=== PATIENT | female | born 1960 | race Caucasian/White ===

== ENCOUNTER 2021-04-26 16:34 | Emergency (ER) | payer OTHER ==
[2021-04-26] MEDS ORDERED: Sodium Chloride 0.9% 10 ML Syringe FLUSH PRN (17:12)
[2021-04-26] MEDS ORDERED: Ketorolac 30 MG/ML SDV IVPUSH ONE (17:56)
--- NOTE | 2021-04-26 18:01 | EDM.PDOC ---
ED HPI GENERAL MEDICAL PROBLEM - General Chief Complaint: Genitourinary Problem Stated Complaint: GROIN PRESSURE Time Seen by Provider: 04/26/21 16:53 Source of Information: Reports: Patient History Limitations: Reports: No Limitations - History of Present Illness INITIAL COMMENTS - FREE TEXT/NARRATIVE: 60-year-old female presents to the emergency department with a 2-day history of pressure in the lower groin/suprapubic area. She states that the pain and pressure is so extreme that she feels as though she is prolapsing. She states she does have a history of kidney stone. Developed right flank pain approximately 1 day ago however she states that seems to have resolved since arriving in the emergency department. She also notes that she has had significant urinary frequency however has not had any burning or irritation noted. She dates she has had fever and chills throughout the day today. She also notes nausea and vomiting associated with the right flank pain however that has resolved since the pain has subsided. She denies any cough, shortness of breath, headache or body aches. She states she has not taken any Tylenol or ibuprofen for the discomfort associated. Groin Pain Score (Numeric/FACES): 4 - Related Data Allergies Allergy/AdvReac Type Severity Reaction Status Date / Time meperidine HCl [From Demerol] Allergy Hallucinati Verified 04/26/21 16:49 ons Home Meds: Home Meds Aspirin 81 mg PO DAILY 11/04/15 [History] Losartan [Cozaar] 25 mg PO DAILY 11/04/15 [History] Hydrocodone/Acetaminophen [HYDROcodone-Acetaminophen 5-325 MG] 1 each PO Q4H PRN #14 tab 04/26/21 [Rx] Sertraline [Zoloft] 75 mg PO DAILY 04/26/21 [History] Past Medical History HEENT History: Reports: Other (See Below) Cardiovascular History: Reports: Hypertension Musculoskeletal History: Reports: Other (See Below) Other Musculoskeletal History: knee injury Psychiatric History: Reports: Anxiety, Depression - Infectious Disease History Infectious Disease History: Reports: Novel Coronavirus - Past Surgical History GI Surgical History: Reports: Cholecystectomy Female Surgical History: Reports: Hysterectomy Musculoskeletal Surgical History: Reports: Arthroscopic Procedure, Ganglion Cyst, Knee Replacement, Other (See Below) Other Musculoskeletal Surgeries/Procedures:: knee injury Social & Family History - Family History Family Medical History: No Pertinent Family History - Tobacco Use Tobacco Use Status *Q: Never Tobacco User - Caffeine Use Caffeine Use: Reports: Coffee - Recreational Drug Use Recreational Drug Use: No - Living Situation & Occupation Living situation: Reports: Occupation: Employed ED ROS GENERAL - Review of Systems Review Of Systems: Comprehensive ROS is negative, except as noted in HPI. ED EXAM, RENAL/ - Physical Exam Exam: See Below Exam Limited By: No Limitations General Appearance: Alert, WD/WN, No Apparent Distress Ears: Normal External Exam, Hearing Grossly Normal Nose: Normal Inspection Throat/Mouth: Normal Inspection, Normal Lips, Normal Voice, No Airway Compromise Head: Atraumatic, Normocephalic Neck: Normal Inspection, Supple Respiratory/Chest: No Respiratory Distress, Lungs Clear, Normal Breath Sounds, No Accessory Muscle Use, Chest Non-Tender Cardiovascular: Normal Peripheral Pulses, Regular Rate, Rhythm, No Edema, No Murmur GI/Abdominal: Normal Bowel Sounds, Soft, No Distention (Pubic tenderness), Tender Rectal (Female) Exam: Deferred Back Exam: Normal Inspection Extremities: Normal Inspection Neurological: Alert, Oriented, Normal Cognition Psychiatric: Normal Affect, Normal Mood Skin Exam: Warm, Dry, Intact, Normal Color, No Rash Lymphatic: No Adenopathy Course - Vital Signs Text/Narrative:: As above, patient presents with suprapubic abdominal discomfort and right flank pain however right flank pain has resolved since arriving in the emergency department. Upon exam, the patient is awake alert and oriented and does not appear to be in any distress. Blood pressure is slightly elevated at 155/80 however she is afebrile and O2 saturations are 96% on room air. Physical exam is essentially unremarkable other than tenderness with palpation to the suprapubic area. Palpation to right and left upper quadrant gives her the sensation that she needs to void. Will obtain lab studies to include a CBC, CMP, magnesium, C-reactive protein as well as a urinalysis with micro and culture if indicated. Will also obtain a CT scan of the abdomen pelvis without contrast to rule out stone. Last Recorded V/S: Last Vital Signs Temp 97.1 F 04/26/21 16:45 Pulse 84 04/26/21 16:45 Resp 15 04/26/21 16:45 BP 155/80 H 04/26/21 16:45 Pulse Ox 96 04/26/21 16:45 - Orders/Labs/Meds Orders: Active Orders 24 hr Category Date Time Status Abdomen Pelvis wo Cont [CT] Stat Exams 04/26/21 17:12 Taken Sodium Chloride 0.9% [Saline Flush] Med 04/26/21 17:12 Active 10 ml FLUSH ASDIRECTED PRN Saline Lock Insert [OM.PC] Stat Oth 04/26/21 17:12 Ordered Medication Orders Sodium Chloride (Sodium Chloride 0.9% 10 Ml Syringe) 10 ml FLUSH ASDIRECTED PRN PRN Reason: Keep Vein Open Last Admin: 04/26/21 18:26 Dose: 10 ml Documented by: ZOHAIB Labs: Laboratory Tests 04/26/21 04/26/21 04/26/21 Range/Units 17:50 18:00 18:00 WBC 14.44 H (3.98-10.04) K/mm3 RBC 4.98 (3.98-5.22) M/mm3 Hgb 14.2 (11.2-15.7) gm/dl Hct 43.1 (34.1-44.9) % MCV 86.5 (79.4-94.8) fl MCH 28.5 (25.6-32.2) pg MCHC 32.9 (32.2-35.5) g/dl RDW Std Deviation 47.2 H (36.4-46.3) fL Plt Count 296 (182-369) K/mm3 MPV 10.3 (9.4-12.3) fl Neut % (Auto) 86.4 H (34.0-71.1) % Lymph % (Auto) 9.7 L (19.3-51.7) % [place] % (Auto) 3.5 L (4.7-12.5) % Eos % (Auto) 0.1 L (0.7-5.8) Baso % (Auto) 0.1 (0.1-1.2) % Neut # (Auto) 12.46 H (1.56-6.13) K/mm3 Lymph # (Auto) 1.40 (1.18-3.74) K/mm3 [place] # (Auto) 0.51 H (0.24-0.36) K/mm3 Eos # (Auto) 0.02 L (0.04-0.36) K/mm3 Baso # (Auto) 0.02 (0.01-0.08) K/mm3 Sodium 143 (136-145) mEq/L Potassium 3.2 L (3.5-5.1) mEq/L Chloride 106 (98-107) mEq/L Carbon Dioxide 27 (21-32) mEq/L Anion Gap 13.2 (5-15) BUN 17 (7-18) mg/dL Creatinine 0.8 (0.55-1.02) mg/dL Est Cr Clr Drug Dosing 62.96 mL/min Estimated GFR (MDRD) > 60 (>60) mL/min BUN/Creatinine Ratio 21.3 H (14-18) Glucose 116 H (70-99) mg/dL Calcium 8.8 (8.5-10.1) mg/dL Magnesium 1.9 (1.8-2.4) mg/dL Total Bilirubin 0.5 (0.2-1.0) mg/dL AST 21 (15-37) U/L ALT 31 (14-59) U/L Alkaline Phosphatase 74 (46-116) U/L C-Reactive Protein 0.6 (<1.0) mg/dL Total Protein 7.2 (6.4-8.2) g/dl Albumin 3.6 (3.4-5.0) g/dl Globulin 3.6 gm/dL Albumin/Globulin Ratio 1.0 (1-2) Urine Color Yellow (Yellow) Urine Appearance Clear (Clear) Urine pH 6.0 (5.0-8.0) Ur Specific [place] 1.020 (1.005-1.030) Urine Protein Negative (Negative) Urine Glucose (UA) Negative (Negative) Urine Ketones Negative (Negative) Urine Occult Blood 3+ H (Negative) Urine Nitrite Negative (Negative) Urine Bilirubin Negative (Negative) Urine Urobilinogen 0.2 (0.2-1.0) Ur Leukocyte Esterase Negative (Negative) Urine RBC 50-75 H (0-5) /hpf Urine WBC 0-5 (0-5) /hpf Ur Squamous Epith Cells 0-5 (0-5) /hpf Urine Bacteria Few (FEW) /hpf Urine Mucus Few (FEW) /hpf Meds: Medications Generic Name Dose Route Start Last Admin Trade Name Freq PRN Reason Stop Dose Admin Sodium Chloride 10 ml 04/26/21 17:12 04/26/21 18:26 Sodium Chloride 0.9% 10 Ml Syringe FLUSH 10 ml ASDIRECTED PRN Administration Keep Vein Open Discontinued Medications Generic Name Dose Route Start Last Admin Trade Name Albinoq PRN Reason Stop Dose Admin Sodium Chloride 1,000 mls @ 999 mls/hr 04/26/21 18:34 04/26/21 19:12 Normal Saline IV 04/26/21 19:34 999 mls/hr ONETIME ONE Administration Ketorolac Tromethamine 30 mg 04/26/21 17:56 04/26/21 18:25 Ketorolac 30 Mg/Ml Sdv IVPUSH 04/26/21 17:57 30 mg ONETIME ONE Administration - Re-Assessments/Exams Free Text/Narrative Re-Assessment/Exam: 04/26/21 18:[address] of the abdomen pelvis without contrast: Lungs: Mild atelectasis in lung bases. Heart: Heart size is normal. Mediastinal space: The visualized distal esophagus is largely contracted without gross abnormality. Liver: Normal color. No mass lesions. No intrahepatic biliary ductal dilation. Gallbladder and bile ducts: Prior cholecystectomy with no significant dilation of the common bile duct. Pancreas: Normal. No inflammatory changes or ductal dilation. Spleen: Normal. No splenomegaly. Adrenal glands: Normal. No adrenal mass. Kidneys and ureters: 4.5 mm right UVJ stone on a series 2, image 132. Slight right-sided hydronephrosis/hydroureter. 4 mm right medullary calcification. 11 mm nonobstructive stone in the lower pole of the left kidney with partial staghorn configuration. Stomach and bowel: The stomach is unremarkable. The small bowel is nondilated with no gross abnormality. No acute colonic abnormalities. Appendix: The appendix is normal in caliber and demonstrates no evidence appendicitis. Intraperitoneal space: No free air or fluid. Vasculature: No acute process. No abdominal aortic aneurysm. Lymph nodes: No adenopathy. Urinary bladder: The bladder is otherwise unremarkable. Reproductive: Prior hysterectomy. Bones/joints: No acute osseous abnormalities. Moderate lumbar facet hypertrophic changes and mild leftward convexity scoliosis. Soft tissues: Small fatty umbilical hernia. No evidence of associated bowel herniation or strangulation. Impression: 1. There is a 4.5 mm right UVJ stone with slight right-sided hydronephrosis and hydroureter. 2. 11 mm nonobstructive left renal stone with partial staghorn configuration. 4 mm right medullary calcification. 3. Additional nonemergent findings detailed above. 04/26/21 19:13 Hematology reveals a WBC of 14.44, hemoglobin 14.2, hematocrit 43.1, platelet count 296 Chemistry reveals a sodium of 143, potassium 3.2, anion gap 13.2, BUN 17, creatinine 0.8 glucose 116, magnesium 1.9, C-reactive protein 0.6 Urinalysis reveals 3+ occult blood, nitrate negative, leukocytes esterase negative, urine RBC 50-75 Suspect elevation in white blood cell count is likely due to stress response as C-reactive protein is not elevated. I have ordered for the patient to receive a liter of normal saline. 04/26/21 20:44 Discussed results with the patient. She will be discharged home with a pre scription for hydrocodone to be taken over the next couple of days. Likely will pass the stone within the next couple of days. We will also send her home with a urine strainer. May follow-up with her primary care provider in about 1 week's time if not feeling better. Departure - Departure Time of Disposition: 20:45 Disposition: Home, Self-Care 01 Condition: Good Clinical Impression: Kidney stone - Discharge Information Prescriptions: Hydrocodone/Acetaminophen [HYDROcodone-Acetaminophen 5-325 MG] 1 each PO Q4H PRN #14 tab PRN Reason: Pain (Moderate 4-6) Instructions: Pain Medicine Instructions, [id number] Referrals: PCP,None [Primary Care Provider] - Forms: ED Department Discharge Additional Instructions: You were seen in the emergency department today with complaints of right flank pain as well as lower abdominal discomfort and pressure. Numerous tests were completed to include labs, urinalysis as well as CT of the abdomen and pelvis. Lab studies were essentially unremarkable however your white blood cell count was elevated. As discussed, I suspect this is likely due to a pain response as your inflammatory markers were not elevated. Urinalysis was unremarkable other than some blood noted in your urine. There is no sign of infection. CT scan of the abdomen and pelvis does show a 4.5 cm kidney stone noted just above the bladder still in the ureters. This likely will pass in the next day or 2. You did receive a liter of IV fluids and a medication called Flomax while in the em ergency department. I have sent a prescription for a narcotic pain medication called hydrocodone. You may take this medication 1 tab every 4-6 hours as needed for more severe pain otherwise may take Tylenol or ibuprofen for the discomfort. Be aware that this medication also has Tylenol in it so do not take it along with Tylenol. Do not take more than 4000 mg of Tylenol in a 24-hour period. I have also given you a prescription for a medication called Flomax to be taken daily. The first dose was given while in the emergency department. This medication helps to dilate your ureters to help pass the stone. Sure you are drinking plenty of fluids and straining all of your urine. Once you have passed the stone you no longer need to take the Flomax medication. If you are not feeling better in about 3 days time. Recommend that you follow-up with your primary care provider at the [facility]. Sepsis Event Note (ED) - Focused Exam Vital Signs: Vital Signs Temp Pulse Resp BP Pulse Ox 04/26/21 16:45 97.1 F 84 15 155/80 H 96 - My Orders Last 24 Hours: My Active Orders 04/26/21 17:12 Abdomen Pelvis wo Cont [CT] Stat Sodium Chloride 0.9% [Saline Flush] 10 ml FLUSH ASDIRECTED PRN Saline Lock Insert [OM.PC] Stat - Assessment/Plan Last 24 Hours: My Active Orders 04/26/21 17:12 Abdomen Pelvis wo Cont [CT] Stat Sodium Chloride 0.9% [Saline Flush] 10 ml FLUSH ASDIRECTED PRN Saline Lock Insert [OM.PC] Stat
[2021-04-26] MEDS ORDERED: Sodium Chloride 0.9% 1,000 ML IV ONE (18:34)
[2021-04-26 21:34] VITALS: BP 142/86; PULSE 77
--- NOTE | 2021-04-28 14:06 | CT ---
EXAM: CT ABDOMEN \T\ PELVIS W/O CONTRAST LOCATION: [facility] (formerly [facility]3] [address] [place] DATE/TIME: 04/26/2021 5:37 PM INDICATION: Abdominal pain; patient history: right flank pain, bilateral lower quadrant pain COMPARISON: None. TECHNIQUE: CT scan of the abdomen and pelvis was performed without oral or IV contrast. Multiplanar reformats were obtained. Dose reduction techniques were used. CONTRAST: None. FINDINGS: LOWER CHEST: Mild bibasilar atelectasis. HEPATOBILIARY: Cholecystectomy. PANCREAS: Normal. SPLEEN: Normal. ADRENAL GLANDS: Normal. KIDNEY/BLADDER: There is a minimally obstructing right ureterovesicular junction stone measuring approximately 4 mm (series 3/63 and 2/132). Minimal right hydroureteronephrosis. Nonobstructing bilateral renal calculi measuring up to 10 mm in the left lower pole. BOWEL: Diverticulosis of the colon. No acute inflammatory change. No obstruction. Normal appendix. LYMPH NODES: Normal. VASCULATURE: Unremarkable. PELVIC ORGANS: Hysterectomy. MUSCULOSKELETAL: Degenerative changes of the spine and bilateral hips. Small periumbilical fat-containing ventral hernia. IMPRESSION: 1. Minimally obstructing right UVJ stone measuring up to 4 mm. 2. Bilateral nonobstructing renal calculi. 3. Diverticulosis. SIGNED BY: Teo Delacurz MD 04/28/2021 12:25 PM [facility]
== END 2021-04-26 21:21 | disposition home or self-care (01) ==
LOC: JD.ED 16:34
DX: N13.2 Hydronephrosis with renal and ureteral calculous obstruction (principal); I10 Essential (primary) hypertension; Z88.5 Allergy status to narcotic agent; Z79.82 Long term (current) use of aspirin; Z79.899 Other long term (current) drug therapy; Z86.16 Personal history of COVID-19
CPT/HCPCS: 36415; 74176; 80053; 81001; 83735; 85025; 86140; 96374; 99284; J1885; J7030